=== PATIENT | female | born 2000 | race Hispanic/Latino ===

== ENCOUNTER 2019-11-30 09:47 | Inpatient (IN) ==
[2019-11-30] MEDS ORDERED: LR 1,000 ML IV SCH (10:15)
[2019-11-30] MEDS ORDERED: SODIUM CHLORIDE 0.9% INJ SCH (10:15)
[2019-11-30] MEDS ORDERED: STADOL IV PRN (10:15)
[2019-11-30] MEDS ORDERED: ZOFRAN IV PRN (10:15)
[2019-11-30] MEDS ORDERED: PEPCID PO PRN ×2 (10:15)
[2019-11-30] MEDS ORDERED: PITOCIN 30 UNITS/NS 30 UNIT/500 ML IV.SOLN IV SCH ×2 (10:15→11:00)
[2019-11-30] MEDS ORDERED: TYLENOL PO PRN (10:15)
[2019-11-30] MEDS ORDERED: KEFZOL 2 GM/D5W 2 GM/50 ML IVPB IV PRN (10:15)
[2019-11-30] MEDS ORDERED: REGLAN PO PRN (10:15)
[2019-11-30] MEDS ORDERED: PEPCID IV PRN (10:15)
[2019-11-30] MEDS ORDERED: AMPICILLIN 2 GM in NS 100 ML IV ONE (10:15)
[2019-11-30 10:36] LABS: URINE SOURCE VOIDED
[2019-11-30] MEDS ORDERED: MINERAL OIL PO PRN ×2 (10:38→11:00)
[2019-11-30] MEDS ORDERED: XYLOCAINE-MPF 1% INJ PRN ×2 (10:38→11:00)
[2019-11-30 10:42] LABS: EOS# 0.02 X1000 (0.0-0.7); EOS% 0.2 % (0.0-10.0); HEMATOCRIT 37.2 % (37.0-47.0); HEMOGLOBIN 12.5 g/dL (12.0-16.0); LYMPH# 1.73 X1000 (1.2-3.4); MCH 31.3 PG (27-31); MCHC 33.6 g/dL (33-37); MONO# 0.57 X1000 (0.11-0.59); MONO% 5.9 % (1.7-9.3); MPV 10.6 FL (7.4-10.4); NEUT% 75.9 % (42.2-75.2); PLT 203 X1000 (130-400); RDW 13.4 % (11.5-14.5); WBC 9.62 X1000 (4.8-10.8)
[2019-11-30 10:45] LABS: BILIRUBIN URINE NEGATIVE (NEGATIVE); BLOOD URINE LARGE (NEGATIVE); COLOR ORANGE; GLUCOSE URINE NEGATIVE (NEGATIVE); KETONE URINE NEGATIVE (NEGATIVE); LEUKOCYTES URINE LARGE (NEGATIVE); NITRITE URINE NEGATIVE (NEGATIVE); PH URINE 6.5; PROTEIN URINE TRACE mg/dL (NEGATIVE); SP GRAVITY URINE 1.017; TURBIDITY URINE HAZY (CLEAR); UROBILINOGEN URINE NORMAL (NORMAL)
[2019-11-30] MEDS ORDERED: BENADRYL IV PRN (11:00)
[2019-11-30] MEDS ORDERED: PERI MEDS (DERMOPLAST/NUPERCAINAL/TUCKS) MISC PRN (11:00)
[2019-11-30] MEDS ORDERED: BENADRYL PO PRN (11:00)
[2019-11-30] MEDS ORDERED: MOTRIN PO PRN (11:00)
[2019-11-30] MEDS ORDERED: CYTOTEC PO PRN (11:00)
[2019-11-30] MEDS ORDERED: ATARAX PO PRN (11:00)
[2019-11-30] MEDS ORDERED: HYDROXYZINE IM PRN (11:00)
[2019-11-30] MEDS ORDERED: M-M-R II VACCINE SUBQ ONE (11:00)
[2019-11-30] MEDS ORDERED: PITOCIN 20 UNITS/NS 20 UNITS/1,000 ML IV.SOLN IV SCH (11:00)
[2019-11-30] MEDS ORDERED: AMBIEN PO PRN (11:00)
[2019-11-30] MEDS ORDERED: BOOSTRIX VACCINE IM ONE (11:00)
[2019-11-30] MEDS ORDERED: PITOCIN IM PRN (11:00)
[2019-11-30] MEDS ORDERED: NORCO-10 PO PRN (11:00)
[2019-11-30 11:31] LABS: RAPID HIV PRESUMPTIVE NEGATIVE; RPR NON-REACTIVE (NONREACTIVE); RUBELLA SCREEN IMMUNE (IMMUNE)
[2019-11-30] MEDS: NORCO-5 PO PRN ×2 (13:37→20:55)
--- NOTE | 2019-11-30 13:42 | HISTORY AND PHYSICAL ---
HISTORY OF PRESENT ILLNESS: The patient is a 19-year-old female, no care, presents with uterine contractions. Denies any rupture of membranes. She has had 2 prior vaginal deliveries. PAST MEDICAL HISTORY: Unremarkable. PAST SURGICAL HISTORY: None. PAST OB HISTORY: G 3, P 2. Spontaneous vaginal delivery x2. INTERNIST HISTORY: Menarche at age 13. REVIEW OF SYSTEMS: All systems reviewed and noncontributory. FAMILY HISTORY: Unremarkable. SOCIAL HISTORY: 1. Tobacco use: None. 2. Alcohol use: None. MEDICATIONS: vitamins. ALLERGIES: No known drug allergies. PHYSICAL EXAMINATION: VITAL SIGNS: Height 4 feet 11 inches, weight 150 pounds, temperature 97.2 degrees, blood pressure 117/75, respirations 20. heart rate in the 130s to 140s with [id number] variability noted. HEENT: Pupils equal, round, reactive to light and accommodation. Extraocular movements intact. Oropharynx clear. NECK: Supple. No thyromegaly. LUNGS: Clear to auscultation. HEART: Regular rate and rhythm. ABDOMEN: Gravid, nontender. Cervix was completely dilated at 0 station. Membranes were noted to be intact, and she was completely effaced. The rupture of membranes revealed clear fluid. EXTREMITIES: No clubbing cyanosis or edema noted. NEUROLOGIC: Cranial nerves 2-12 grossly intact. Motor 5/5. ASSESSMENT/PLAN: A 19-year-old female, 3, para 2, what appears to be term gestation in active labor with no care. We will try to place on antibiotics prior to delivery and anticipate a vaginal delivery. cc: Blu Live III, MD
--- NOTE | 2019-11-30 13:51 | OPERATIVE NOTE ---
PROCEDURE DATE: 11/30/2019 DELIVERY NOTE: The patient progressed to complete pushing, had spontaneous vaginal delivery of a male infant, 6 pounds 4 ounces with Apgars of 8 and 9 at 1046 hours on 11/30/2019 over intact perineum. Cord blood sample was obtained at this time. Placenta was delivered intact with 3 vessel cord. Inspection of the placenta noted some old clots resembling an abruption appearance. ESTIMATED BLOOD LOSS: 150 mL. ANESTHESIA: None. COUNTS: All counts were correct x2. cc: Blu Live III, MD
[2019-11-30] MEDS ORDERED: AMPICILLIN 1 GM in NS 50 ML IV SCH (14:16)
[2019-11-30 15:52] LABS: UR AMPHETAMINES QUAL NONE DETECTED (NONE DETECT); UR BARBITUATES QUAL NONE DETECTED (NONE DETECT); UR BENZODIAZEPIN QUAL NONE DETECTED (NONE DETECT); UR CANNABINOIDS QUAL NONE DETECTED (NONE DETECT); UR COCAINE QUAL NONE DETECTED (NONE DETECT); UR METHADONE QUAL NONE DETECTED (NONE DETECT); UR OPIATES QUAL NONE DETECTED (NONE DETECT); UR OXYCODONE QUAL NONE DETECTED (NONE DETECT); UR PCP QUAL NONE DETECTED (NONE DETECT)
[2019-11-30] MEDS: PERICOLACE PO SCH (20:55)
[2019-11-30 22:32] LABS: HIV ANTIBODY SCREEN SEE COMMENTS
[2019-12-01 05:46] LABS: BASO# 0.01 X1000 (0.0-0.2); BASO% 0.1 % (0.0-0.8); EOS# 0.08 X1000 (0.0-0.7); EOS% 0.9 % (0.0-10.0); HEMATOCRIT 31.3 % (37.0-47.0); HEMOGLOBIN 10.1 g/dL (12.0-16.0); IMM GRAN# 0.02 X1000 (0.0-0.04); IMM GRAN% 0.2 % (0.0-0.5); LYMPH# 2.18 X1000 (1.2-3.4); LYMPH% 25.1 % (20.5-51.1); MCH 30.3 PG (27-31); MCHC 32.3 g/dL (33-37); MONO# 0.66 X1000 (0.11-0.59); MONO% 7.6 % (1.7-9.3); MPV 10.7 FL (7.4-10.4); NEUT# 5.74 X1000 (1.4-6.5); NEUT% 66.1 % (42.2-75.2); PLT 187 X1000 (130-400); RBC 3.33 XMIL (4.2-5.4); RDW 13.3 % (11.5-14.5); WBC 8.69 X1000 (4.8-10.8)
--- NOTE | 2019-12-01 08:03 | OB/GYN PROGRESS NOTE ---
- Subjective Patient doing well, No Guatemalan, using my little bit of korean,she is fine OB Physical Exam Vital Signs - 8 hr 12/01/19 02:05 12/01/19 07:41 Temperature 98.0 F 97.3 F L Pulse Rate 73 65 Respiratory Rate 16 18 Blood Pressure 101/51 106/55 O2 Sat by Pulse Oximetry 97 99 - CONSTITUTIONAL General Appearance: appears well, alert, no apparent distress - EYES Eyes: PERRL/EOMI - HEAD, EARS, NOSE, MOUTH & THROAT HENMT: normocephalic/atraumatic - NECK Neck: non-tender - RESPIRATORY Respiratory: no respiratory distress - CARDIOVASCULAR Cardiovascular: regular rate, rhythm - CHEST (BREASTS) Chest/Breast: deferred - GASTROINTESTINAL (ABDOMEN) Abdominal Exam: non tender - GENITOURINARY Female Genitalia/Pelvic Exam: deferred - MUSCULOSKELETAL Extremity: normal range of motion - SKIN Integumentary: normal color, normal turgor, warm/dry - NEUROLOGIC Neurologic: grossly normal - PSYCHIATRIC Psych/Mental Status: normal mood/affect, oriented x 3 Active Medications Generic Name Dose Route Start Last Admin Trade Name Freq PRN Reason Stop Dose Admin Acetaminophen 650 mg 11/30/19 10:15 Tylenol PO Q4-6H PRN PRN Headache Hydrocodone Bitart/Acetaminophen 1 each 11/30/19 11:00 11/30/19 20:55 Smiley-5 PO 1 each Q3-4H PRN PRN Administration Pain (1-6 on Pain Scale) Hydrocodone Bitart/Acetaminophen 1 each 11/30/19 11:00 Smiley-10 PO Q3-4H PRN PRN Pain (7-10 on Pain Scale) Benzocaine 1 each 11/30/19 11:00 Christina Meds (Dermoplast/Nupercainal/Tucks) MISC 3-4XDAY PRN PRN episiotomy/hemorrhoids Diphenhydramine HCl 12.5 mg 11/30/19 11:00 Benadryl IV Q4H PRN PRN Itching Diphenhydramine HCl 25 mg 11/30/19 11:00 Benadryl PO Q4H PRN PRN Itching Famotidine 40 mg 11/30/19 10:15 Pepcid PO Q12H PRN PRN GI upset or indigestion Famotidine 20 mg 11/30/19 10:15 Pepcid IV Q12H PRN PRN GI upset or indigestion Famotidine 20 mg 11/30/19 10:15 Pepcid PO ONCE PRN PRN section Hydroxyzine HCl 50 mg 11/30/19 11:00 Atarax PO Q3-4H PRN PRN Nausea Hydroxyzine HCl 50 mg 11/30/19 11:00 Hydroxyzine IM Q3-4H PRN PRN Nausea Oxytocin/Sodium Chloride 20 units in 1,000 mls @ 0 mls/hr 11/30/19 11:00 11/30/19 15:34 Pitocin 20 Units/Ns IV 125 mls/hr .Q0M NICHOLAS Administration As Directed Ibuprofen 800 mg 11/30/19 11:00 11/30/19 13:37 Motrin PO 800 mg Q8H PRN PRN Administration cramping Metoclopramide HCl 10 mg 11/30/19 10:15 Reglan PO ONCE PRN PRN section Misoprostol 800 microgm 11/30/19 11:00 Cytotec PO PRN PRN Severe bleeding Ondansetron HCl 4 mg 11/30/19 10:15 Zofran IV PRN PRN Nausea Oxytocin 20 unit 11/30/19 11:00 Pitocin IM PRN PRN Severe bleeding Senna/Docusate Sodium 1 each 11/30/19 21:00 11/30/19 20:55 Pericolace PO 1 each QHS NICHOLAS Administration Sodium Chloride 5 - 10 ml 11/30/19 10:15 Sodium Chloride 0.9% INJ DIRECTED NICHOLAS Zolpidem Tartrate 10 mg 11/30/19 11:00 Ambien PO HS PRN PRN Sleep Laboratory Results - last 24 hr 11/30/19 11/30/19 11/30/19 10:30 10:30 10:30 WBC RBC Hgb Hct MCV MCH MCHC RDW Std Deviation Plt Count MPV Immature Gran % (Auto) Neut % (Auto) Lymph % (Auto) [place] % (Auto) Eos % (Auto) Baso % (Auto) Immature Gran # (Auto) Neut # (Auto) Lymph # (Auto) [place] # (Auto) Eos # (Auto) Baso # (Auto) Glucose 84 Urine Source VOIDED Urine Color ORANGE Urine Turbidity HAZY Urine pH 6.5 Ur Specific [place] 1.017 Urine Protein TRACE A Ur Glucose (Stick) NEGATIVE Ur Ketones (Stick) NEGATIVE Urine Blood LARGE A Urine Nitrite NEGATIVE Urine Bilirubin NEGATIVE Urobilinogen Dipstick NORMAL Urine Leukocytes LARGE A Urine Opiates Screen Ur Oxycodone Screen Ur Methadone, Qual Ur Barbiturates Screen Ur Phencyclidine Scrn Ur Amphetamines Screen U Benzodiazepines Scrn Urine Cocaine Screen U Cannabinoids Screen RPR NON-REACTIVE HIV 1&2 Antibody Screen HIV 1&2 Antibody Rapid PRESUMPTIVE NEGATIVE Rubella Immunity Screen IMMUNE Blood Type Blood Type Confirm Antibody Screen 11/30/19 11/30/19 11/30/19 10:30 10:30 11:23 WBC 9.62 RBC 4.00 L Hgb 12.5 Hct 37.2 MCV 93.0 MCH 31.3 H MCHC 33.6 RDW Std Deviation 13.4 Plt Count 203 MPV 10.6 H Immature Gran % (Auto) Neut % (Auto) 75.9 H Lymph % (Auto) 18.0 L [place] % (Auto) 5.9 Eos % (Auto) 0.2 Baso % (Auto) 0.0 Immature Gran # (Auto) Neut # (Auto) 7.30 H Lymph # (Auto) 1.73 [place] # (Auto) 0.57 Eos # (Auto) 0.02 Baso # (Auto) 0.00 Glucose Urine Source Urine Color Urine Turbidity Urine pH Ur Specific [place] Urine Protein Ur Glucose (Stick) Ur Ketones (Stick) Urine Blood Urine Nitrite Urine Bilirubin Urobilinogen Dipstick Urine Leukocytes Urine Opiates Screen Ur Oxycodone Screen Ur Methadone, Qual Ur Barbiturates Screen Ur Phencyclidine Scrn Ur Amphetamines Screen U Benzodiazepines Scrn Urine Cocaine Screen U Cannabinoids Screen RPR HIV 1&2 Antibody Screen HIV 1&2 Antibody Rapid Rubella Immunity Screen Blood Type O POSITIVE Blood Type Confirm O POSITIVE Antibody Screen NEGATIVE 11/30/19 11/30/19 12/01/19 11:31 14:35 05:07 WBC 8.69 RBC 3.33 L Hgb 10.1 L D Hct 31.3 L MCV 94.0 MCH 30.3 MCHC 32.3 L RDW Std Deviation 13.3 Plt Count 187 MPV 10.7 H Immature Gran % (Auto) 0.2 Neut % (Auto) 66.1 Lymph % (Auto) 25.1 [place] % (Auto) 7.6 Eos % (Auto) 0.9 Baso % (Auto) 0.1 Immature Gran # (Auto) 0.02 Neut # (Auto) 5.74 Lymph # (Auto) 2.18 [place] # (Auto) 0.66 H Eos # (Auto) 0.08 Baso # (Auto) 0.01 Glucose Urine Source Urine Color Urine Turbidity Urine pH Ur Specific [place] Urine Protein Ur Glucose (Stick) Ur Ketones (Stick) Urine Blood Urine Nitrite Urine Bilirubin Urobilinogen Dipstick Urine Leukocytes Urine Opiates Screen NONE DETECTED Ur Oxycodone Screen NONE DETECTED Ur Methadone, Qual NONE DETECTED Ur Barbiturates Screen NONE DETECTED Ur Phencyclidine Scrn NONE DETECTED Ur Amphetamines Screen NONE DETECTED U Benzodiazepines Scrn NONE DETECTED Urine Cocaine Screen NONE DETECTED U Cannabinoids Screen NONE DETECTED RPR HIV 1&2 Antibody Screen SEE COMMENTS HIV 1&2 Antibody Rapid Rubella Immunity Screen Blood Type Blood Type Confirm Antibody Screen OB Assessment & Plan (1) Normal course Status: Acute Plan: routine precautions
[2019-12-01 11:02] LABS: HEPATITIS B SURFACE ANTIGEN SEE COMMENTS
[2019-12-02] MEDS: PERICOLACE PO SCH (06:04)
[2019-12-02] MEDS ORDERED: DEPO-PROVERA IM ONE (06:58)
[2019-12-02 07:22] VITALS: BP 104/62
--- NOTE | 2019-12-03 04:00 | DISCHARGE SUMMARY ---
ADMISSION DATE: 11/30/2019 DISCHARGE DATE: 12/02/2019 The patient is a 19-year-old female who presented with uterine contractions. She has had care. She has had 2 previous vaginal deliveries. Her course was unremarkable. Her medical and surgical hx was benign. She is taking vitamins. HOSPITAL COURSE: The patient delivered on 11/30/2019 of a male , 6 pounds 4 ounces with Apgars of 8 and 9 at 10:46 on 11/30/2019 over an intact perineum. Placenta may have had some clots indicative of a mild abruption. The patient's course was totally benign. She was discharged home with precautions with followup with the OB doctor in approximately 4 weeks. The patient verbalized understanding. She did speak Slovak and a fine patcher was used. cc: Blu Live III, MD MTDD
== END 2019-12-02 12:20 | disposition home or self-care (01) | DRG 807 ==
LOC: OPLD 09:47 → LD 09:52
PROVIDERS: ADMIT Obstetrics & Gynecology; ATTEND Obstetrics & Gynecology